=== PATIENT | female | born 1960 | race Caucasian/White ===

== ENCOUNTER 2017-08-30 18:17 | Emergency (ER) | payer MEDICAID, OTHER, SELFPAY ==
[~2017-08-30] VITALS: Ht 167.6 cm; Wt 75.0 kg
[2017-08-30] MEDS ORDERED: NITROGLYCERIN OINT 2%, 1GM TP ONE ×2 (18:30→18:45)
[2017-08-30] MEDS ORDERED: PLEASE ENTER HEIGHT AND WEIGHT MC SCH (18:30)
[2017-08-30] MEDS ORDERED: PLEASE ENTER ALLERGIES MC SCH ×2 (18:30)
[2017-08-30 18:50] LABS: WHITE BLOOD COUNT 8.8 x10^3/uL (3.4-10)
[2017-08-30 19:02] LABS: BLOOD UREA NITROGEN 10 mg/dL (7-18)
[2017-08-30 19:08] LABS: ASPARTATE AMINO TRANSFERASE 20 U/L (15-37)
[2017-08-30 19:09] LABS: IS PT STATUS REG ER OR PRE ER? YES
[2017-08-30] MEDS ORDERED: LORazepam 1MG TABLET PO ONE (23:00)
[2017-08-30] MEDS ORDERED: LORazepam 1MG TABLET ONE (23:04)
[2017-08-31] MEDS ORDERED: NITROGLYCERIN OINT 2%, 1GM TP ONE ×2 (00:30→01:32)
[2017-08-31] MEDS ORDERED: LISINOPRIL 10 MG TABLET PO ONE (00:30)
[2017-08-31 02:33] VITALS: BP 137/86
[2017-08-31] MEDS ORDERED: LORazepam 1MG TABLET PO ONE (04:30)
[2017-08-31] MEDS ORDERED: LORazepam 1MG TABLET ONE (04:38)
== END 2017-08-31 06:23 ==
LOC: ED 22:09
DX: R07.2 Precordial pain (principal); I10 Essential (primary) hypertension
CPT/HCPCS: 36415; 71010; 80053; 84484; 85025; 93005; 99285